=== PATIENT | female | born 1985 | race Caucasian/White ===

== ENCOUNTER 2020-03-02 12:36 | Emergency (ER) | payer BC ==
--- NOTE | 2020-03-02 13:07 | EDM.PDOC ---
ED HPI GENERAL MEDICAL PROBLEM - General Chief Complaint: Syncope Stated Complaint: SYNCOPE Time Seen by Provider: 03/02/20 12:57 - History of Present Illness INITIAL COMMENTS - FREE TEXT/NARRATIVE: 34-year-old female presents the emergency room after having a syncopal type event at home. Patient awoke around 10:00 this morning and noticed her pulse was a little slower than normal. Shortly after this an episode where she actually passed out hit the ground she does not believe she hit her head and she has had no injury. According to her she was out for at least a minute and he had to give her a few rescue breaths because she started to turn blue her eyes rolled back in her head. She did not have any involuntary motion associated with this. Almost a year ago the patient had a heart ablation in [place] and has done well since this time. The patient was seen in the clinic close to her home where they thought she had developed a right bundle branch block. And her pulse rate was 48. She has not had chest pain or chest pressure with this. - Related Data Allergies Allergy/AdvReac Type Severity Reaction Status Date / Time No Known Allergies Allergy Verified 03/02/20 12:48 Home Meds: Home Meds . [No Known Home Meds] 03/02/20 [History] Past Medical History Cardiovascular History: Reports: Other (See Below) Other Cardiovascular History: pt was having runs of Vtach one year ago and had a heart ablation done - Past Surgical History HEENT Surgical History: Reports: Oral Surgery Social & Family History - Tobacco Use Smoking Status *Q: Never Smoker Second Hand Smoke Exposure: No - Caffeine Use Caffeine Use: Reports: Tea - Recreational Drug Use Recreational Drug Use: No ED ROS GENERAL - Review of Systems Review Of Systems: See Below Constitutional: Reports: No Symptoms Respiratory: Reports: No Symptoms Cardiovascular: Reports: Syncope. Denies: Chest Pain, Dyspnea on Exertion GI/Abdominal: Reports: No Symptoms Musculoskeletal: Reports: No Symptoms Skin: Reports: No Symptoms Neurological: Reports: No Symptoms ED EXAM, GENERAL - Physical Exam Exam: See Below Exam Limited By: No Limitations General Appearance: Alert, No Apparent Distress, Other (She is back in a normal sinus rhythm rate in the 70s upon arrival to our emergency department) Head: Atraumatic, Normocephalic Neck: Normal Inspection Respiratory/Chest: No Respiratory Distress, Lungs Clear, Normal Breath Sounds Cardiovascular: Regular Rate, Rhythm, No Edema, No Murmur Course - Vital Signs Last Recorded V/S: Last Vital Signs Temp 36.4 C 03/02/20 12:44 Pulse 64 03/02/20 15:24 Resp 16 03/02/20 14:03 BP 117/69 03/02/20 15:24 Pulse Ox 100 03/02/20 15:24 - Orders/Labs/Meds Labs: Laboratory Tests 03/02/20 03/02/20 Range/Units 13:26 13:26 WBC 6.32 (3.98-10.04) K/mm3 RBC 4.05 (3.98-5.22) M/mm3 Hgb 12.2 (11.2-15.7) gm/dl Hct 38.0 (34.1-44.9) % MCV 93.8 (79.4-94.8) fl MCH 30.1 (25.6-32.2) pg MCHC 32.1 L (32.2-35.5) g/dl RDW Std Deviation 47.9 H (36.4-46.3) fL Plt Count 298 (182-369) K/mm3 MPV 10.8 (9.4-12.3) fl Neut % (Auto) 69.2 (34.0-71.1) % Lymph % (Auto) 20.7 (19.3-51.7) % Laurel % (Auto) 9.0 (4.7-12.5) % Eos % (Auto) 0.6 L (0.7-5.8) Baso % (Auto) 0.3 (0.1-1.2) % Neut # (Auto) 4.37 (1.56-6.13) K/mm3 Lymph # (Auto) 1.31 (1.18-3.74) K/mm3 Laurel # (Auto) 0.57 H (0.24-0.36) K/mm3 Eos # (Auto) 0.04 (0.04-0.36) K/mm3 Baso # (Auto) 0.02 (0.01-0.08) K/mm3 Sodium 140 (136-145) mEq/L Potassium 4.3 (3.5-5.1) mEq/L Chloride 105 (98-107) mEq/L Carbon Dioxide 28 (21-32) mEq/L Anion Gap 11.3 (5-15) BUN 8 (7-18) mg/dL Creatinine 0.7 (0.55-1.02) mg/dL Est Cr Clr Drug Dosing 53.70 mL/min Estimated GFR (MDRD) > 60 (>60) mL/min BUN/Creatinine Ratio 11.4 L (14-18) Glucose 90 (74-106) mg/dL Calcium 9.0 (8.5-10.1) mg/dL Magnesium 1.9 (1.8-2.4) mg/dl Total Bilirubin 0.5 (0.2-1.0) mg/dL AST 13 L (15-37) U/L ALT 18 (14-59) U/L Alkaline Phosphatase 50 (46-116) U/L Troponin I < 0.017 (0.00-0.056) ng/mL Total Protein 7.4 (6.4-8.2) g/dl Albumin 3.6 (3.4-5.0) g/dl Globulin 3.8 gm/dL Albumin/Globulin Ratio 1.0 (1-2) Departure - Departure Time of Disposition: 15:26 Disposition: Home, Self-Care 01 Clinical Impression: Syncopal episodes, Bradycardia Instructions: Bradycardia, Adult, Syncope, [id number] Referrals: Meera Slaughter PA [Primary Care Provider] - Forms: ED Department Discharge Additional Instructions: Return to the emergency room with any questions problems or worsening symptoms. Case was discussed with Dr. Roberto compensation adjuster for Dr. Nolan. Her recommendation was to check a 48-hour Holter. This is being set up. The electrophysiology office should contact you for phone interview in the near future. Start magnesium oxide, or Mag-Ox 400 mg daily. Direct the results of the Holter monitor to go to Dr. Nolan in [place]. Sepsis Event Note (ED) - Evaluation Sepsis Screening Result: No Definite Risk - Focused Exam Vital Signs: Vital Signs Temp Pulse Resp BP Pulse Ox 03/02/20 15:24 64 117/69 100 03/02/20 14:03 78 16 105/71 100 03/02/20 12:44 36.4 C 71 18 123/82 100
== END 2020-03-02 16:10 | disposition home or self-care (01) ==
LOC: JD.ED 12:36
DX: R55 Syncope and collapse (principal); R00.1 Bradycardia, unspecified
CPT/HCPCS: 36415; 80053; 83735; 84484; 85025; 93005; 93010; 93225; 93226; 99283; 99284-25

== ENCOUNTER 2021-09-12 18:51 | Observation (INO) | payer BC | END 2021-09-13 09:36 | LOC: JD.ED 18:51 → JD.MS 21:08 | PROVIDERS: ADMIT Pediatrics; ATTEND Pediatrics | DX: R55 Syncope and collapse (principal); R00.1 Bradycardia, unspecified; Z79.899 Other long term (current) drug therapy; Z98.890 Other specified postprocedural states; Z86.79 Personal history of other diseases of the circulatory system; Z20.822 Contact with and (suspected) exposure to COVID-19 | CPT/HCPCS: 36415; 80053; 83735; 84443; 84484; 85025; 85379; 93005; 93010; 99284; 99285-25; G0378; U0002 ==